=== PATIENT | male | born 1990 | race African-American/Black ===

== ENCOUNTER 2016-07-05 22:03 | Emergency (ER) | payer SELFPAY ==
--- NOTE | 2016-07-05 23:19 | ER Document Report ---
ED Neck/Back Problem - General Chief Complaint: Back Pain Stated Complaint: BACK PAIN Mode of Arrival: Ambulatory Information source: Patient Notes: 26 y/o M presents to ED c/o lower back pain. Patient reports 3 days ago slept on the floor at a friend's house subsequently developed pain to his lower back. Reports pain is to bilateral lower back worse with movement and bending of trunk. Denies recent injury or trauma, fever, extremity weakness/numbness/ tingling, saddle numbness, incontinence, or urinary retention. Reports has had similar episodes in the past once after a fall and another time after lifting a heavy object. TRAVEL OUTSIDE OF THE [place] IN LAST 30 DAYS: No - HPI Patient complains to provider of: Lower back Onset: Last week Onset: Gradual Quality of pain: Achy Severity: Mild Pain Level: 2 Recent injury: No Associated symptoms: Like prior neck/back pain, Lower back pain. denies: Chest pain, Chills, Fever, Incontinence, Numbness/tingling, Radiation to leg, Sensory loss, Unable to urinate Exacerbated by: Movement of trunk Relieved by: Upright position Similar symptoms previously: Yes Recently seen / treated by doctor: No - Related Data Allergies/Adverse Reactions: No Known Allergies Allergy (Verified 07/15/15 09:51) Past Medical History - General Information source: Patient - Social History Smoking Status: Current Every Day Smoker Frequency of alcohol use: None Drug Abuse: None Lives with: Family Family History: Reviewed & Not Pertinent Patient has suicidal ideation: No Patient has homicidal ideation: No - Medical History Medical History: Negative Renal/ Medical History: Denies: Hx Peritoneal Dialysis Past Surgical History: Reports: Hx Oral Surgery - wisdom teeth - Immunizations Immunizations up to date: Yes Hx Diphtheria, Pertussis, Tetanus Vaccination: Yes Review of Systems - Review of Systems Constitutional: No symptoms reported EENT: No symptoms reported Cardiovascular: No symptoms reported Respiratory: No symptoms reported Gastrointestinal: No symptoms reported Genitourinary: No symptoms reported Male Genitourinary: No symptoms reported Musculoskeletal: See HPI Skin: No symptoms reported Hematologic/Lymphatic: No symptoms reported Neurological/Psychological: No symptoms reported -: Yes All other systems reviewed and negative Physical Exam - Vital signs Vitals: Temp Pulse Resp BP Pulse Ox 98.8 F 70 18 117/66 97 07/05/16 22:07 07/05/16 22:07 07/05/16 22:07 07/05/16 22:07 07/05/16 22:07 Interpretation: Normal - General General appearance: Appears well, Alert In distress: None - HEENT Head: Normocephalic, Atraumatic Eyes: Normal Pupils: PERRL - Respiratory Respiratory status: No respiratory distress Chest status: Nontender Breath sounds: Normal Chest palpation: Normal - Cardiovascular Rhythm: Regular Heart sounds: Normal auscultation Murmur: No Pulses: Normal: Radial, Dorsalis pedis Normal capillary refill: Yes - Abdominal Inspection: Normal Distension: No distension Bowel sounds: Normal Tenderness: Nontender Organomegaly: No organomegaly - Back Back: Tender - Mild tenderness with palpation to bilateral paraspinal musculature at upper lumbar level. No midline tenderness, deformity, step-off, or instability. Full range of motion without paresthesias or neurological deficits.. No: Normal, Nontender, Deformity/step-off, CVA tenderness, Vertebra tenderness, Scars, Scoliosis, Wounds, Other - Extremities General upper extremity: Normal inspection, Nontender, Normal color, Normal ROM , Normal strength, Normal temperature. No: Tender, Edema General lower extremity: Normal inspection, Nontender, Normal color, Normal ROM , Normal strength, Normal temperature, Normal weight bearing. No: Tender, Edema - Neurological Neuro grossly intact: Yes Cognition: Normal Orientation: AAOx4 Ruma Coma Scale Eye Opening: Spontaneous Ruma Coma Scale Verbal: Oriented [place] Coma Scale Motor: Obeys Commands [place] Coma Scale Total: 15 Speech: Normal Cerebellar coordination: Normal Motor strength normal: LUE, RUE, LLE, RLE Sensory: Normal Knee - Reflex grade: 2 = Normal - Psychological Associated symptoms: Normal affect, Normal mood - Skin Skin Temperature: Warm Skin Moisture: Dry Skin Color: Normal Course - Re-evaluation Re-evalutation: 07/05/16 23:23 Patient hemodynamically stable, in no distress, afebrile.The patient presents with back pain without signs of spinal cord compression, cauda equina syndrome, infection, aneurysm, or other serious etiology. The patient is neurologically intact, independently and steadily ambulatory without paresthesias or neurological deficits. Given the extremely low risk of these diagnoses further testing and evaluation for these possibilities does not appear to be indicated at this time. Patient appears stable for discharge and agrees with home care, follow-up with PCP, and ED return precautions. - Vital Signs Vital signs: Temp Pulse Resp BP Pulse Ox 98.8 F 70 18 117/66 97 07/05/16 22:07 07/05/16 22:07 07/05/16 22:07 07/05/16 22:07 07/05/16 22:07 Discharge - Discharge Clinical Impression: Back pain Qualifiers: Back pain location: low back pain Chronicity: acute Back pain laterality: bilateral Sciatica presence: without sciatica Qualified Code(s): M54.5 - Low back pain Condition: Stable Disposition: HOME, SELF-CARE Additional Instructions: LOW BACK PAIN: Three out of every four people will have an episode of disabling back pain during their lifetime. Most commonly the pain is due to straining of the muscles and ligaments in the low back. Usual treatment includes: (1) Rest on a firm surface. Avoid lying on your stomach. (2) Ice pack the painful area. After a few days, gentle heat may be used intermittently to relax the area, or ice packs can be continued. (3) Medication may be needed -- muscle relaxers and antiinflammatory medicines are commonly used. (4) As the back improves, exercises are prescribed to strengthen the back and abdominal muscles. Your doctor will advise you on the proper care for your back at each stage in your recovery. You may be better in a few days -- or healing may take several weeks. If new symptoms of a "herniated disc" (radiation of pain, numbness, or tingling down the back of the leg or weakness in the leg) occur, you should be re-examined. Further testing may be necessary. Anti-Inflammatory Medication You have received a prescription for an antiinflammatory agent. This is an excellent, safe drug for pain control. In addition, it has potent antiinflammatory effects which are beneficial, especially in the treatment of injuries, arthritis, or tendonitis. It's best to take this medicine with food. Persons with ulcer disease or allergy to aspirin should notify their physician of this before taking this drug. Take the medication exactly as prescribed. Don't take additional doses unless instructed to do so by your doctor. If you develop wheezing, shortness of breath, hives, faintness, stomach pain, vomiting, or dark black stools, return for re-evaluation at once. MUSCLE RELAXERS: Muscle relaxing medications are usually prescribed for acute muscle spasm or injury to the neck and back. They are often combined with antiinflammatory pain medication for increased relief. You may stop the muscle relaxer when the pain and stiffness have improved. Start the medication again if spasms recur. Muscle relaxers may cause drowsiness, especially with the first dose. Do not operate machinery or drive while under the effects of the medication. Most muscle relaxers last up to 24 hours. Do not combine the medication with alcohol. ICE PACKS: Apply ice packs frequently against the painful area. Many different schedules are recommended, such as "20 minutes on, 20 minutes off" or "one hour ice, two hours rest." If you need to work, you may need to go longer between ice treatments. You should plan to have the area ice packed AT LEAST one fourth of the time. The ice should be applied over the wrap, tape, or splint, or over a layer of cloth -- not directly against the skin. Some ice bags have a built-in cloth and can be put directly on the skin. WARM PACKS: After approximately two days, apply gentle heat (such as a heating pad or hot water bottle) for about 20 to 30 minutes about every two hours -- at least four times daily. Warmth and elevation will help you make a more rapid recovery , and will ease the pain considerably. Do not use HOT heat, and never apply heat for longer than 30 minutes. The continuous heat can invisibly damage skin and muscles -- even when no burn is seen on the surface. Damaged muscles can make you MORE sore. FOLLOW-UP CARE: Follow-up with your primary care provider this week. Return to the emergency department for any worsening symptoms or concerns. Prescriptions: Methocarbamol [Robaxin 500 mg Tablet] 500 mg PO BIDP PRN #8 tablet PRN Reason: Naproxen 500 mg PO BIDP PRN #10 tablet PRN Reason:
[2016-07-06 00:02] VITALS: BP 112/69
== END 2016-07-05 23:33 | disposition home or self-care (01) ==
LOC: ER 22:03
DX: M54.5 Low back pain (principal); X58.XXXA Exposure to other specified factors, initial encounter; F17.200 Nicotine dependence, unspecified, uncomplicated
CPT/HCPCS: 99283

== ENCOUNTER 2016-10-07 03:11 | Emergency (ER) | payer SELFPAY ==
[2016-10-07] MEDS ORDERED: DIPH/PERTUSS(ACELL)/TETANUS VAC/PF 0.5 ML SYR (>=10YO) IM ONE (03:34)
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
--- NOTE | 2016-10-07 03:58 | RADIOLOGY REPORT (SQ) ---
EXAM DESCRIPTION: CT HEAD WITHOUT COMPLETED DATE/TIME: 10/07/2016 3:48 am REASON FOR STUDY: head injury, lac COMPARISON: None. TECHNIQUE: Axial images acquired through the brain without intravenous contrast. Images reviewed wi th bone, brain and subdural windows. Images stored on PACS. All CT scanners at this facility use dose modulation, iterative reconstruction, and/or weight based d osing when appropriate to reduce radiation dose to as low as reasonably achievable (ALARA). [facility]: Dose Right [facility]: CareDose [facility]: Dose Right [facility]: Teradose 4D [facility]: [employer] RADIATION DOSE: Up-to-date CT equipment and radiation dose reduction techniques were employed. CTDIv ol: 64.6 mGy. DLP: 1292 mGy-cm. mGy. LIMITATIONS: None. FINDINGS: VENTRICLES: Normal size and contour. CEREBRUM: No masses. No hemorrhage. No midline shift. Normal lee/white matter differentiation. N o evidence for acute infarction. CEREBELLUM: No masses. No hemorrhage. No alteration of density. No evidence for acute infarction. EXTRAAXIAL SPACES: No fluid collections. No masses. ORBITS AND GLOBE: No intra- or extraconal masses. Normal contour of globe without masses. CALVARIUM: No fracture. PARANASAL SINUSES: No fluid or mucosal thickening. SOFT TISSUES: Mild left anterior parietal swelling. OTHER: No other significant finding. IMPRESSION: No acute intracranial findings. Mild scalp swelling. TECHNICAL DOCUMENTATION: JOB ID: [id number] Quality ID # [id number]: Final reports with documentation of one or more dose reduction techniques (e.g., Au tomated exposure control, adjustment of the mA and/or kV according to patient size, use of iterative reconstruction technique) 2010 [employer]- All Rights Reserved
[2016-10-07] MEDS ORDERED: LIDOCAINE 1% INJ-PF (10 MG/ML) 30 ML SDV INJ ONE (04:10)
[2016-10-07] MEDS ORDERED: OXYCODONE-ACETAMINOPHEN 5-325 MG TABLET PO ONE (04:45)
[2016-10-07 05:24] VITALS: BP 119/54
== END 2016-10-07 05:23 | disposition home or self-care (01) ==
LOC: ER 03:11
PROC: 0HQ1XZZ Repair Face Skin, External Approach (ICD-10-PCS; principal; 2016-10-07)
DX: S01.81XA Laceration without foreign body of other part of head, initial encounter (principal); V18.4XXA Pedal cycle driver injured in noncollision transport accident in traffic accident, initial encounter; Y93.55 Activity, bike riding; F17.210 Nicotine dependence, cigarettes, uncomplicated; Z23 Encounter for immunization
CPT/HCPCS: 99284; 90471; 70450; 90715; 12011; J3490

== ENCOUNTER 2016-10-08 00:49 | Emergency (ER) | payer SELFPAY ==
[2016-10-08] MEDS ORDERED: LIDOCAINE 1%/EPINEPHRINE INJ 20 ML VIAL INJ ONE (01:36)
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
[2016-10-08] MEDS ORDERED: LIDOCAINE 0.5%/EPINEPHRINE INJ 50 ML VIAL INJ ONE (01:38)
[2016-10-08 02:16] VITALS: BP 126/77
== END 2016-10-08 02:15 | disposition home or self-care (01) ==
LOC: ER 00:49
PROC: 0HQ1XZZ Repair Face Skin, External Approach (ICD-10-PCS; principal; 2016-10-08)
DX: T81.33XA Disruption of traumatic injury wound repair, initial encounter (principal); Y83.8 Other surgical procedures as the cause of abnormal reaction of the patient, or of later complication, without mention of misadventure at the time of the procedure; F17.200 Nicotine dependence, unspecified, uncomplicated; S01.511A Laceration without foreign body of lip, initial encounter; X58.XXXA Exposure to other specified factors, initial encounter
CPT/HCPCS: 99282; 12013; J3490

== ENCOUNTER 2016-10-16 09:19 | Emergency (ER) | payer SELFPAY ==
[2016-10-16 09:25] VITALS: BP 134/69
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
== END 2016-10-16 09:50 | disposition home or self-care (01) ==
LOC: ER 09:19
DX: S01.112D Laceration without foreign body of left eyelid and periocular area, subsequent encounter (principal); Y08.89XD Assault by other specified means, subsequent encounter

== ENCOUNTER 2017-01-21 12:11 | Emergency (ER) | payer OTHER ==
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
[2017-01-21 16:05] VITALS: BP 128/71
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
== END 2017-01-21 16:04 | disposition home or self-care (01) ==
LOC: ER 12:11
DX: S50.312A Abrasion of left elbow, initial encounter (principal); S80.212A Abrasion, left knee, initial encounter; S60.512A Abrasion of left hand, initial encounter; V13.4XXA Pedal cycle driver injured in collision with car, pick-up truck or van in traffic accident, initial encounter; Y93.55 Activity, bike riding; M25.562 Pain in left knee; R10.9 Unspecified abdominal pain; M54.2 Cervicalgia; R51 Headache; F17.210 Nicotine dependence, cigarettes, uncomplicated
CPT/HCPCS: 99284; 73562; 70450; 71260; 72125; 74177; L0172

== ENCOUNTER 2017-04-07 23:37 | Emergency (ER) | payer SELFPAY ==
[2017-04-07 23:43] VITALS: BP 141/71
[2017-04-08] MEDS ORDERED: LIDOCAINE 5% (700 MG) TRANSDERMAL ADH..PATCH TP ONE (01:45)
[2017-04-08] MEDS ORDERED: IBUPROFEN 600 MG TABLET PO ONE (01:45)
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
== END 2017-04-08 01:50 | disposition home or self-care (01) ==
LOC: ER 23:37
DX: M54.5 Low back pain (principal); W17.89XA Other fall from one level to another, initial encounter
CPT/HCPCS: 99283

== ENCOUNTER 2017-04-26 15:13 | Emergency (ER) | payer SELFPAY ==
[2017-04-26 15:19] VITALS: BP 122/78
--- NOTE | 2017-04-26 15:52 | ER Document Report ---
ED Hand/Wrist Injury - General Chief Complaint: Laceration Stated Complaint: LEFT ARM INJURY Time Seen by Provider: 04/26/17 15:39 Mode of Arrival: Medic Information source: Patient Notes: 27-year-old male presents to ED for cut on his left hand. He states he flung his hand up and it hit the glass light cover on the ceiling fan causing a laceration to the backside of his left hand. He states he had a tetanus shot last year. Is in no acute distress at this time there is no bleeding he does have a bandage on his hand. TRAVEL OUTSIDE OF THE [place] IN LAST 30 DAYS: No - HPI Injury to: Hand Onset: This afternoon - 1400 Where: Home, Indoors Timing: Still present Quality of pain: Sharp Severity: Moderate Pain Level: 2 - Related Data Allergies/Adverse Reactions: No Known Allergies Allergy (Verified 01/21/17 12:22) Past Medical History - General Information source: Patient - Social History Smoking Status: Former Smoker Cigarette use (# per day): No Chew tobacco use (# tins/day): No Smoking Education Provided: No Frequency of alcohol use: None Drug Abuse: Marijuana Occupation: none Lives with: Friend Family History: Other - Patient does not know his family history he states he is never around many does not remember any Patient has suicidal ideation: No Patient has homicidal ideation: No - Past Medical History Cardiac Medical History: Reports: None Pulmonary Medical History: Reports: Hx Asthma EENT Medical History: Reports: None Neurological Medical History: Reports: None Endocrine Medical History: Reports: None Renal/ Medical History: Reports: None Malignancy Medical History: Reports None GI Medical History: Reports: None Musculoskeltal Medical History: Reports None Skin Medical History: Reports None Psychiatric Medical History: Reports: Hx Bipolar Disorder Traumatic Medical History: Reports: None Infectious Medical History: Reports: None Past Surgical History: Reports: Hx Oral Surgery - wisdom teeth - Immunizations Immunizations up to date: Yes Hx Diphtheria, Pertussis, Tetanus Vaccination: Yes - 2017 Review of Systems - Review of Systems Constitutional: No symptoms reported EENT: No symptoms reported Cardiovascular: No symptoms reported Respiratory: No symptoms reported Gastrointestinal: No symptoms reported Genitourinary: No symptoms reported Male Genitourinary: No symptoms reported Musculoskeletal: No symptoms reported Skin: Other - Laceration left hand Hematologic/Lymphatic: No symptoms reported Neurological/Psychological: No symptoms reported -: Yes All other systems reviewed and negative Physical Exam - Vital signs Vitals: Temp Pulse Resp BP Pulse Ox 98.5 F 57 L 16 122/78 97 04/26/17 15:18 04/26/17 15:18 04/26/17 15:18 04/26/17 15:18 04/26/17 15:18 Interpretation: Normal - General General appearance: Appears well, Alert - HEENT Head: Normocephalic, Atraumatic Eyes: Normal Pupils: PERRL - Respiratory Respiratory status: No respiratory distress Chest status: Nontender Breath sounds: Normal Chest palpation: Normal - Cardiovascular Rhythm: Regular Heart sounds: Normal auscultation Murmur: No - Abdominal Inspection: Normal Distension: No distension Bowel sounds: Normal Tenderness: Nontender Organomegaly: No organomegaly - Back Back: Normal, Nontender - Extremities General upper extremity: Normal color, Normal ROM, Normal temperature General lower extremity: Normal inspection, Nontender, Normal color, Normal ROM , Normal temperature, Normal weight bearing. No: Dave's sign Hand: Tender, Laceration, No evidence of human bite, No evidence of FB - Neurological Neuro grossly intact: Yes Cognition: Normal Orientation: AAOx4 [place] Coma Scale Eye Opening: Spontaneous [place] Coma Scale Verbal: Oriented [place] Coma Scale Motor: Obeys Commands [place] Coma Scale Total: 15 Speech: Normal Motor strength normal: LUE, RUE, LLE, RLE Sensory: Normal - Psychological Associated symptoms: Normal affect, Normal mood - Skin Skin Temperature: Warm Skin Moisture: Dry Skin Color: Normal Course - Re-evaluation Re-evalutation: 04/26/17 17:01 No foreign bodies noted on x-ray patient tolerated sutures well. Will put bacitracin Telfa and dressing on it treat with Keflex and discharged home with a prescription for Keflex. Patient to follow-up with Dr. Serna the hand surgeon and with his family practitioner. - Vital Signs Vital signs: Temp Pulse Resp BP Pulse Ox 98.5 F 57 L 16 122/78 97 04/26/17 15:18 1518 15:18 18 15:18 04/26/17 15:18 04/26/17 15:18 - Diagnostic Test Radiology reviewed: Reports reviewed Procedures - Laceration/Wound Repair Left Dorsal Hand Time completed: 17:00 Wound length (cm): 3.5 Wound's Depth, Shape: Superficial, Irregular Laceration pre-procedure: Sterile PPE donned, Sterile drapes applied, Shur- Clens applied Anesthetic type: 1% Lidocaine Volume Anesthetic (mLs): 5 Wound explored: Clean, No foreign body removed Irrigated w/ Saline (mLs): 400 Wound Repaired With: Sutures Suture Size/Type: 4:0, Ethilon Number of Sutures: 7 Layer Closure?: No Post-procedure wound care: Sterile dressing applied Post-procedure NV exam normal: Yes Complications: No Discharge - Discharge Clinical Impression: Laceration of hand Qualifiers: Encounter type: initial encounter Foreign body presence: without foreign body Laterality: left Qualified Code(s): S61.412A - Laceration without foreign body of left hand, initial encounter Condition: Stable Disposition: HOME, SELF-CARE Instructions: Family Physicians / Practices Additional Instructions: Hand Laceration A laceration on the hand can present special problems. It may be difficult to keep the wound dry. Motion of the fingers can disturb the healing edges. Your work may involve exposure to damaging chemicals or water. Keep the wound clean and dry. If you can't keep the cut dry, undisturbed, and free of chemical exposure, please discuss this with the doctor. If any water or chemical gets onto the dressing, remove it, blot the wound dry, then apply a fresh bandage. Dressings should be changed every day. If you feel the stitches pulling as you move the hand, a splint or other form of protection is needed. If any signs of infection occur (swelling, redness, increasing tenderness, red streaks, tender lumps in the armpit, or fever), see the doctor immediately. SOAP CLEANSING: Gently wash the wound daily using a mild soap (like Ivory, Phisoderm, Neutrogena). Use warm water, rubbing gently until all debris, ooze, and crusting have been washed from the wound. Allow to dry briefly (about 10 minutes) after cleaning. Repeat this cleansing at least three times a day for the first two days and then once or twice a day. ANTIBIOTIC OINTMENT PROTECTION: Your wounds are such that dressing them is not practical or optional. After cleansing, you should apply a thin coating of antibiotic ointment ( Bacitracin, not Neosporin) to the wounds at least three times daily. This lessens infection risk, and may decrease the amount of scarring. Use a q-tip or dull butter knife, not your finger, to apply this ointment. Any debris or ooze which builds up in the ointment should be gently rubbed off with a sterile gauze pad. Harder crusting may need to be gently scrubbed off with a clean wash cloth with soap and warm water, perhaps applying a warm, wet wash cloth to the wound for ten minutes first. Development of redness, severe itching, or blistering may mean allergy to the ointment. See the doctor. PROPHYLACTIC ANTIBIOTIC: The antibiotics which have been prescribed are designed to decrease the risk of infection. Only certain types of wounds benefit from this -- the typical cut, scrape, or burn DOES NOT require antibiotics. Of course, infection can still occur despite the use of prophylactic antibiotics. Your wound will heal with less chance of an infectious complication if you take the medication as directed. The most important dose is the FIRST dose, so don't delay filling the prescription! FOLLOW-UP CARE: Please return in ___2__ days for an infection check and dressing change. Your sutures should be removed in ___9__ days. To facilitate a timely removal of your sutures, you may return to the Emergency Department at [facility]. You do not need to call for an appointment, but the best time to come in for suture removal is early in the morning. If you have been referred to another physician for follow-up care, call that physicians office for an appointment as you were instructed. If you experience a significant change in your laceration, or if you are concerned there may be an infection (swelling, redness, drainage, increasing tenderness, red streaks, tender lumps in the armpit or groin above the laceration, or fever) , return to the Emergency Department immediately re-evaluation. Prescriptions: Cephalexin Monohydrate [Keflex 500 mg Capsule] 500 mg PO Q6H 5 Days capsule Referrals: KENDRICK SERNA DO [ACTIVE STAFF] - Follow up as needed
[2017-04-26] MEDS ORDERED: LIDOCAINE 1% INJ-PF (10 MG/ML) 30 ML SDV INJ ONE (15:58)
--- NOTE | 2017-04-26 16:45 | RADIOLOGY REPORT (SQ) ---
EXAM DESCRIPTION: HAND LEFT 2 VIEWS COMPLETED DATE/TIME: 04/26/2017 4:35 pm REASON FOR STUDY: Cut hand on glass COMPARISON: None. EXAM PARAMETERS: NUMBER OF VIEWS: Three views. TECHNIQUE: AP, lateral and oblique radiographic images acquired of the left hand. LIMITATIONS: None. FINDINGS: MINERALIZATION: Normal. BONES: No acute fracture or dislocation. No worrisome bone lesions. JOINTS: No effusions. SOFT TISSUES: No soft tissue swelling. No foreign body. OTHER: No other significant finding. IMPRESSION: NEGATIVE STUDY OF THE LEFT HAND. NO RADIOGRAPHIC EVIDENCE OF ACUTE INJURY. TECHNICAL DOCUMENTATION: JOB ID: [id number] [employer]- All Rights Reserved
[2017-04-26] MEDS ORDERED: CEPHALEXIN 500 MG CAPSULE PO ONE (16:54)
== END 2017-04-26 17:19 | disposition home or self-care (01) ==
LOC: ER 15:13
DX: S61.412A Laceration without foreign body of left hand, initial encounter (principal); W25.XXXA Contact with sharp glass, initial encounter; Y92.009 Unspecified place in unspecified non-institutional (private) residence as the place of occurrence of the external cause; J45.909 Unspecified asthma, uncomplicated; Z87.891 Personal history of nicotine dependence
CPT/HCPCS: 99283; 73120; 12002; J3490

== ENCOUNTER 2017-05-01 16:06 | Emergency (ER) | payer SELFPAY ==
[2017-05-01 16:19] VITALS: BP 124/72
--- NOTE | 2017-05-01 17:13 | ER Document Report ---
HPI - HPI Patient complains to provider of: Suture removal Onset: Other - Told to come back for suture removal Pain Level: 0 Context: 27-year-old male was dorsal right hand sutures that were placed 5 days ago. He thought he was supposed to come back today for suture removal. Associated Symptoms: None Exacerbated by: Denies Relieved by: Denies - ROS ROS below otherwise negative: Yes Systems Reviewed and Negative: Yes All other systems reviewed and negative Past Medical History - General Information source: Patient - Social History Smoking Status: Unknown if Ever Smoked Frequency of alcohol use: None Drug Abuse: None Lives with: Family Family History: Other - Patient does not know his family history he states he is never around many does not remember any Pulmonary Medical History: Reports: Hx Asthma Renal/ Medical History: Denies: Hx Peritoneal Dialysis Psychiatric Medical History: Reports: Hx Bipolar Disorder Past Surgical History: Reports: Hx Oral Surgery - wisdom teeth - Immunizations Immunizations up to date: Yes Hx Diphtheria, Pertussis, Tetanus Vaccination: Yes - 2017 Vertical Provider Document - CONSTITUTIONAL Agree With Documented VS: Yes Exam Limitations: No Limitations General Appearance: No Apparent Distress - INFECTION CONTROL TRAVEL OUTSIDE OF THE [place] IN LAST 30 DAYS: No - RESPIRATORY O2 Sat by Pulse Oximetry: 98 - MUSCULOSKELETAL/EXTREMETIES Musculoskeletal/Extremeties: MAEW, FROM, Non-Tender - NEURO Level of Consciousness: Awake, Alert - DERM Integumentary: Laceration - Sutured dorsal right hand laceration no inflammation or drainage Course - Vital Signs Vital signs: Temp Pulse Resp BP Pulse Ox 98.3 F 70 12 124/72 98 05/01/17 16:18 05/01/17 16:18 05/01/17 16:18 05/01/17 16:18 05/01/17 16:18 Discharge - Discharge Clinical Impression: wound check Condition: Good Disposition: HOME, SELF-CARE Instructions: Hand Laceration ([facility]) Additional Instructions: return on may 05 for suture removal as originally instructed keep dry to er any concerns
== END 2017-05-01 17:15 | disposition home or self-care (01) ==
LOC: ER 16:06
DX: S61.411D Laceration without foreign body of right hand, subsequent encounter (principal); X58.XXXD Exposure to other specified factors, subsequent encounter
CPT/HCPCS: 99281

== ENCOUNTER 2017-05-03 12:25 | Emergency (ER) | payer SELFPAY | END 2017-05-03 12:50 | disposition left against medical advice (07) | LOC: ER 12:25 | DX: Z53.21 Procedure and treatment not carried out due to patient leaving prior to being seen by health care provider (principal) ==

== ENCOUNTER 2017-09-16 17:11 | Emergency (ER) | payer SELFPAY ==
--- NOTE | 2017-09-16 17:49 | RADIOLOGY REPORT (SQ) ---
EXAM DESCRIPTION: HAND LEFT 3 VIEWS COMPLETED DATE/TIME: 09/16/2017 5:39 pm REASON FOR STUDY: fell c/o of pain in hand and thumb COMPARISON: 04/26/2017 EXAM PARAMETERS: NUMBER OF VIEWS: Three views. TECHNIQUE: AP, lateral and oblique radiographic images acquired of the left hand. LIMITATIONS: None. FINDINGS: MINERALIZATION: Normal. BONES: No acute fracture or dislocation. No worrisome bone lesions. JOINTS: No effusions. SOFT TISSUES: No soft tissue swelling. No foreign body. OTHER: No other significant finding. IMPRESSION: NEGATIVE STUDY OF THE LEFT HAND. NO RADIOGRAPHIC EVIDENCE OF ACUTE INJURY. TECHNICAL DOCUMENTATION: JOB ID: [id number] [email or web address]- All Rights Reserved Reading location - IP/workstation name: [email or web address]
--- NOTE | 2017-09-16 17:57 | ER Document Report ---
ED Hand/Wrist Injury - General Chief Complaint: Thumb Injury Stated Complaint: FINGER INJURY Time Seen by Provider: 09/16/17 17:20 Mode of Arrival: Ambulatory Information source: Patient Notes: 27-year-old female presents to ED for complaining of left thumb pain about 30 minutes before coming to the ED. He states he fell landing on his hand causing pain to his thumb. He states he was outside when he fell. He also has a small scratch to his face that he states is a neighbor's cat scratching. Patient refused Tylenol or Motrin. He was given an ice pack and x-rays ordered. TRAVEL OUTSIDE OF THE [place] IN LAST 30 DAYS: No - HPI Injury to: Hand, Thumb Onset: Just prior to arrival Where: Outdoors, Public place Timing: Still present Quality of pain: Sharp, Throbbing Severity: Moderate Pain Level: 4 Context: Fall - Related Data Allergies/Adverse Reactions: No Known Allergies Allergy (Verified 09/16/17 17:12) Past Medical History - General Information source: Patient - Social History Smoking Status: Former Smoker Cigarette use (# per day): No Chew tobacco use (# tins/day): No Smoking Education Provided: No Frequency of alcohol use: None Drug Abuse: None Lives with: Family Family History: Other - Patient does not know his family history he states he is never around many does not remember any Patient has suicidal ideation: No Patient has homicidal ideation: No - Past Medical History Cardiac Medical History: Reports: None Pulmonary Medical History: Reports: Hx Asthma EENT Medical History: Reports: None Neurological Medical History: Reports: None Endocrine Medical History: Reports: None Renal/ Medical History: Reports: None Malignancy Medical History: Reports None GI Medical History: Reports: None Musculoskeltal Medical History: Reports None Skin Medical History: Reports None Psychiatric Medical History: Reports: Hx Bipolar Disorder Traumatic Medical History: Reports: None Past Surgical History: Reports: Hx Oral Surgery - wisdom teeth - Immunizations Immunizations up to date: Yes Hx Diphtheria, Pertussis, Tetanus Vaccination: Yes - 2017 Review of Systems - Review of Systems Constitutional: No symptoms reported EENT: No symptoms reported Cardiovascular: No symptoms reported Respiratory: No symptoms reported Gastrointestinal: No symptoms reported Genitourinary: No symptoms reported Male Genitourinary: No symptoms reported Musculoskeletal: Other - Left hand and thumb pain and swelling Skin: No symptoms reported Hematologic/Lymphatic: No symptoms reported Neurological/Psychological: No symptoms reported -: Yes All other systems reviewed and negative Physical Exam - Vital signs Vitals: Temp Pulse Resp BP Pulse Ox 99.5 F 73 16 136/84 H 98 09/16/17 17:14 09/16/17 17:14 09/16/17 17:14 09/16/17 17:14 09/16/17 17:14 Interpretation: Normal - General General appearance: Appears well, Alert - HEENT Head: Normocephalic, Atraumatic Eyes: Normal Pupils: PERRL - Respiratory Respiratory status: No respiratory distress Chest status: Nontender Breath sounds: Normal Chest palpation: Normal - Cardiovascular Rhythm: Regular Heart sounds: Normal auscultation Murmur: No - Abdominal Inspection: Normal Distension: No distension Bowel sounds: Normal Tenderness: Nontender Organomegaly: No organomegaly - Back Back: Normal, Nontender - Extremities General upper extremity: Normal color, Normal temperature General lower extremity: Normal inspection, Nontender, Normal color, Normal ROM , Normal temperature, Normal weight bearing. No: Dave's sign Wrist: Normal, Nontender Hand: Tender, No evidence of human bite, No evidence of FB, Swelling. No: Abrasion, Deformity, Dislocation, Ecchymosis, Instability, Nail injury, Tendon deficit - Neurological Neuro grossly intact: Yes Cognition: Normal Orientation: AAOx4 [place] Coma Scale Eye Opening: Spontaneous [place] Coma Scale Verbal: Oriented [place] Coma Scale Motor: Obeys Commands [place] Coma Scale Total: 15 Speech: Normal Motor strength normal: LUE, RUE, LLE, RLE Sensory: Normal - Psychological Associated symptoms: Normal affect, Normal mood - Skin Skin Temperature: Warm Skin Moisture: Dry Skin Color: Normal Course - Re-evaluation Re-evalutation: 09/16/17 18:17 X-ray of left hand is negative according to the radiologist. I do not see any acute injuries. Hand is swollen around the thumb. Patient has snuffbox tenderness and pain with opposition of the thumb. Will place in a thumb spica splint instructed patient on elevation ice ibuprofen and Tylenol and have follow -up with the orthopedic. - Vital Signs Vital signs: Temp Pulse Resp BP Pulse Ox 99.5 F 73 16 131/87 H 98 09/16/17 17:14 09/16/17 17:14 09/16/17 17:14 09/16/17 18:27 06/07/18 17:14 - Diagnostic Test Radiology reviewed: Image reviewed, Reports reviewed Procedures - Immobilization Left Hand Time completed: 18:23 Immobilizer type: Thumb spica Performed by: PCT Post-Proc Neuro Vasc Exam: Normal Alignment checked and good: Yes Discharge - Discharge Clinical Impression: Pain in left hand, Pain of left thumb Fall Qualifiers: Encounter type: initial encounter Qualified Code(s): W19.XXXA - Unspecified fall, initial encounter Condition: Stable Disposition: HOME, SELF-CARE Additional Instructions: You were seen today for pain in your left thumb and hand. You state you fell and it is hard to move your left thumb. X-rays do not show any acute fractures at this time. You will placed in a thumb spica splint to hold this area stable until you can follow-up with orthopedics. SPLINT PRECAUTIONS: A splint has been placed. This will protect the area while healing begins. Your problem does NOT normally require a cast. It MUST, however, be held still! Keep the splint on ALL THE TIME until instructed to remove it by the doctor. As you begin to use the area, be careful. You shouldn't do anything which causes discomfort -- you may disturb the injury even with the splint in place. After the initial period of rest and elevation, if splint does not prevent pain when you move, come back. You may require placement of a different splint , or a cast. If there is unexpected severe pain, or numbness, discoloration, or swelling beyond the splint, you should return at once. If you feel that the splint has broken or become loose, come back. ICE & ELEVATION: Apply ice packs frequently against the painful area. Many different schedules are recommended, such as "20 minutes on, 20 minutes off" or "one hour ice, two hours rest." If you need to work, you may need to go longer between ice treatments. You should plan to have the area ice packed AT LEAST one- fourth of the time. The ice should be applied over the wrap, tape, or splint, or over a layer of cloth -- not directly against the skin. Some ice bags have a built-in cloth and can be put directly on the skin. Your injured part should be elevated as much as possible over the next 48 hours. Try to keep the injury above the level of the heart. Avoid use of the injured area. Elevation and rest will decrease the swelling. USE OF [id number] IBUPROFEN: Ibuprofen (Advil, Nuprin, Medipren, Motrin IB) is a medication for fever and pain control. In addition, it has anti- inflammatory effects which may be beneficial, especially in the treatment of injuries. It's best to take ibuprofen with food. Persons with ulcer disease or allergy to aspirin should notify their physician of this before taking ibuprofen. Ibuprofen can be given every four to six hours, for a total of four doses daily. Age Pain or fever dose Antiinflammatory dose 6-8 yr 200 mg (1 tab) 200 mg (1 tab) 9-11 yr 200 mg (1 tab) 200-400 mg (1-2 tab) 11-14 yr 200-400 mg (1-2 tab) 400 mg (2 tab) 15-adult 400 mg (2 tab) 600 mg (3 tab) FOLLOW-UP CARE: If you have been referred to a physician for follow-up care, call the physician s office for an appointment as you were instructed or within the next two days. If you experience worsening or a significant change in your symptoms, notify the physician immediately or return to the Emergency Department at any time for re-evaluation. Forms: Elevated Blood Pressure Referrals: FERNANDO DONALDSON MD [ACTIVE STAFF] - Follow up as needed
[2017-09-16 18:29] VITALS: BP 131/87
== END 2017-09-16 18:30 | disposition home or self-care (01) ==
LOC: ER 17:11
PROC: 2W3HX1Z Immobilization of Left Thumb using Splint (ICD-10-PCS; principal; 2017-09-16)
DX: S00.81XA Abrasion of other part of head, initial encounter (principal); M79.642 Pain in left hand; M79.645 Pain in left finger(s); W19.XXXA Unspecified fall, initial encounter; W55.03XA Scratched by cat, initial encounter; Z87.891 Personal history of nicotine dependence; J45.909 Unspecified asthma, uncomplicated
CPT/HCPCS: 99283

== ENCOUNTER 2018-05-02 18:46 | Emergency (ER) | payer SELFPAY ==
[2018-05-02 18:53] VITALS: BP 135/78
[2018-05-02] MEDS ORDERED: AZITHROMYCIN 250 MG TABLET PO ONE (19:29)
[2018-05-02] MEDS ORDERED: CEFTRIAXONE INJ 250 MG VIAL IM ONE (19:29)
[2018-05-02] MEDS ORDERED: LIDOCAINE 1% INJ-PF (10 MG/ML) 30 ML SDV INJ ONE (19:30)
[2018-05-02 19:47] LABS: APPEARANCE,URINE CLOUDY; BILIRUBIN,URINE NEGATIVE (NEGATIVE); COLOR,URINE YELLOW; GLUCOSE, URINE NEGATIVE (NEGATIVE); KETONES,URINE NEGATIVE (NEGATIVE); LEUKOCYTE ESTERASE,URINE LARGE (NEGATIVE); NITRITE,URINE NEGATIVE (NEGATIVE); PROTEIN,URINE 30 mg/dL (NEGATIVE)
--- NOTE | 2018-05-02 20:02 | ER Document Report ---
HPI - HPI Time Seen by Provider: 05/02/18 19:29 Pain Level: 3 Notes: Patient is an otherwise healthy 28-year-old male who presents with chief complaint of dysuria and penile drainage over the last 3 days. Patient reports that he has had sex with multiple partners lately. He is unsure if either of them had similar symptoms. Patient denies any history of sexually transmitted diseases. Past Medical History - General Information source: Patient - Social History Smoking Status: Current Some Day Smoker Drug Abuse: None Family History: Other - Patient does not know his family history he states he is never around many does not remember any Pulmonary Medical History: Reports: Hx Asthma Renal/ Medical History: Denies: Hx Peritoneal Dialysis Psychiatric Medical History: Reports: Hx Bipolar Disorder Past Surgical History: Reports: Hx Oral Surgery - wisdom teeth - Immunizations Immunizations up to date: Yes Hx Diphtheria, Pertussis, Tetanus Vaccination: Yes - 2017 Vertical Provider Document - CONSTITUTIONAL Notes: PHYSICAL EXAMINATION: GENERAL: Well-appearing, well-nourished and in no acute distress. HEAD: Atraumatic, normocephalic. EYES: Pupils equal round extraocular movements intact, conjunctiva are normal. ENT: Nares patent NECK: Normal range of motion LUNGS: No respiratory distress Musculoskeletal: Normal range of motion NEUROLOGICAL: Normal speech, normal gait. PSYCH: Normal mood, normal affect. SKIN: Warm, Dry, normal turgor, no rashes or lesions noted. - INFECTION CONTROL TRAVEL OUTSIDE OF THE [place] IN LAST 30 DAYS: No Course - Re-evaluation Re-evalutation: Patient treated prophylactically for chlamydia and gonorrhea. GC chlamydia testing pending in lab. - Vital Signs Vital signs: Temp Pulse Resp BP Pulse Ox 98.4 F 80 14 135/78 H 97 05/02/18 18:52 05/02/18 18:52 05/02/18 18:52 05/02/18 18:52 05/02/18 18:52 - Laboratory Laboratory results interpreted by me: 05/02/18 19:20 Urine Protein 30 H Urine Blood SMALL H Urine Urobilinogen 2.0 H Ur Leukocyte Esterase LARGE H Discharge - Discharge Clinical Impression: Concern about STD in male without diagnosis Condition: Stable Disposition: HOME, SELF-CARE Additional Instructions: We have treated today for chlamydia and gonorrhea. Please make sure the nurse has her correct phone number is someone will call you in the next several days if your results are positive. The urine culture is pending if this is abnormal we will call in an antibiotic for you. Please follow-up with the health department. No sexual intercourse for 7-10 days.
[2018-05-02 21:17] LABS: CHLAM PCR NOT DETECTED (NOT DETECT); GON PCR DETECTED (NOT DETECT)
== END 2018-05-02 20:31 | disposition home or self-care (01) ==
LOC: ER 18:46
DX: R30.0 Dysuria (principal); R36.9 Urethral discharge, unspecified; F17.200 Nicotine dependence, unspecified, uncomplicated
CPT/HCPCS: 99283; 96372; 87086; 81001; 87491; 87591; J3490; J0696

== ENCOUNTER 2018-09-12 01:16 | Emergency (ER) | payer SELFPAY ==
[2018-09-12] MEDS ORDERED: LIDOCAINE 1% INJ-PF (10 MG/ML) 30 ML SDV INJ ONE ×2 (03:55→06:30)
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
[2018-09-12] MEDS ORDERED: CEPHALEXIN 500 MG CAPSULE PO ONE (07:00)
[2018-09-12 09:02] VITALS: BP 142/90
== END 2018-09-12 09:00 | disposition home or self-care (01) ==
LOC: ER 01:16
DX: S02.82XB Fracture of other specified skull and facial bones, left side, initial encounter for open fracture (principal); Y00.XXXA Assault by blunt object, initial encounter; J45.909 Unspecified asthma, uncomplicated; Z91.030 Bee allergy status; F12.10 Cannabis abuse, uncomplicated
CPT/HCPCS: 99283; 70450; 70486; 72125; 12011; 12001; J3490

== ENCOUNTER 2018-09-17 19:43 | Emergency (ER) | payer SELFPAY ==
[2018-09-17] MEDS ORDERED: ACETAMINOPHEN 325 MG TABLET PO ONE (20:26)
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
[2018-09-17] MEDS ORDERED: LIDOCAINE 1%/EPINEPHRINE INJ 20 ML VIAL INJ ONE (21:52)
[2018-09-17] MEDS ORDERED: LIDOCAINE 4% TRANSPARENT DRESSING 5 GM KIT TP ONE (22:39)
--- NOTE | 2018-09-17 23:36 | ER Document Report ---
ED General - General Chief Complaint: Laceration Stated Complaint: HAND INJURY Time Seen by Provider: 09/17/18 20:24 Notes: Patient is a 28-year-old male without chronic medical problems who presents after allegedly falling into glass causing a laceration of his left wrist, right index finger, left ear. The patient is a very evasive historian, when I try to clarify what exactly happened today he continues to state "I just fell". Notes a throbbing, aching constant discomfort to the affected areas. Touching the areas worsens the pain, nothing improves the pain. Regards the pain is being mild in nature. Denies history of similar injuries in the past. States his tetanus is up-to-date. Has not seen his general physician regarding today's concerns. Denies any head or neck trauma today. Denies trauma to any other location. Denies focal weakness, numbness or confusion. TRAVEL OUTSIDE OF THE [place] IN LAST 30 DAYS: No - Related Data Allergies/Adverse Reactions: bee venom protein (honey bee) Allergy (Verified 09/12/18 06:33) Past Medical History - General Information source: Patient - Social History Smoking Status: Never Smoker Frequency of alcohol use: None Drug Abuse: None Family History: Other - Patient does not know his family history he states he is never around many does not remember any Patient has suicidal ideation: No Patient has homicidal ideation: No Pulmonary Medical History: Reports: Hx Asthma Renal/ Medical History: Denies: Hx Peritoneal Dialysis Psychiatric Medical History: Reports: Hx Bipolar Disorder Past Surgical History: Reports: Hx Oral Surgery - wisdom teeth - Immunizations Immunizations up to date: Yes Hx Diphtheria, Pertussis, Tetanus Vaccination: Yes - 2016 Review of Systems - Review of Systems Notes: Constitutional: Negative for fever. Eyes: Negative for visual changes. ENT: Negative for facial injury Cardiovascular: Negative for chest injury. Respiratory: Negative for shortness of breath. Gastrointestinal: Negative for abdominal injury. Genitourinary: Negative for genital injury Musculoskeletal: Positive for right index finger injury and left wrist injury Skin: Positive for laceration/abrasions. Neurological: Negative for head injury. Physical Exam - Vital signs Vitals: Temp Pulse Resp BP Pulse Ox 98.9 F 92 16 138/87 H 100 09/17/18 19:57 09/17/18 19:57 09/17/18 19:57 09/17/18 19:57 09/17/18 19:57 Interpretation: Normal Notes: PHYSICAL EXAMINATION: GENERAL: Well-appearing, well-nourished and in no acute distress. HEAD: Atraumatic, normocephalic. EYES: Pupils equal round and reactive to light, extraocular movements intact, sclera anicteric, conjunctiva are normal. ENT: nares patent, oropharynx clear without exudates. Moist mucous membranes. NECK: Normal range of motion, supple without lymphadenopathy LUNGS: Breath sounds clear to auscultation bilaterally and equal. No wheezes rales or rhonchi. HEART: Regular rate and rhythm without murmurs, capillary refill less than 2 seconds in all digits of the bilateral hands, 2+ radial pulse bilaterally. EXTREMITIES: Full flexion extension of the left wrist including against resistance. NEUROLOGICAL: No focal neurological deficits. Moves all extremities spontaneously and on command. RMU motor and sensory distribution is intact bilaterally including against resistance on motor testing. PSYCH: Normal mood, normal affect. SKIN: Warm, Dry, normal turgor, 6 cm flap type laceration over the volar ulnar aspect of the left wrist, 2 cm laceration over the lower external ear on the left. There is a superficial type laceration over the volar pad of the right index finger. Course - Re-evaluation Re-evalutation: 09/17/18 23:36 Patient presents after reported mechanical fall landing in glass. Sustained a 6 cm laceration over his left volar wrist as well as a 2 cm laceration over the left lower ear. The patient also sustained a laceration to the right index fin kahlil. X-rays of the left wrist and right index finger do not demonstrate any evidence of fractures or evidence of retained foreign bodies. The lacerations on the ear and left wrist were amenable to repair. Patient states his tetanus is already up-to-date within the last 5 years. Denies any head or neck trauma. He has full RMU motor and sensory distribution bilaterally including against resistance. Full flexion extension of the left wrist. Capillary refill less than 2 seconds in all digits of the left hand. At this time will discharge with return precautions and follow-up recommendations. Verbal discharge instructions given a the bedside and opportunity for questions given. Medication warnings reviewed. Patient is in agreement with this plan and has verbalized understanding of return precautions and the need for primary care follow-up in the next 24-72 hours. - Vital Signs Vital signs: Temp Pulse Resp BP Pulse Ox 98.9 F 92 16 138/87 H 100 09/17/18 19:57 09/17/18 19:57 09/17/18 19:57 09/17/18 19:57 09/17/18 19:57 - Diagnostic Test Radiology reviewed: Image reviewed, Reports reviewed Radiology results interpreted by me: 09/17/18 23:35 Left wrist x-ray: No acute fracture or evidence of retained foreign body Right finger x-ray: No evidence of retained foreign body Procedures - Laceration/Wound Repair Left Ear Wound length (cm): 2 Wound's Depth, Shape: Superficial Laceration pre-procedure: Sterile PPE donned Anesthetic type: 1% Lidocaine w/epi Volume Anesthetic (mLs): 1 Wound explored: Clean Irrigated w/ Saline (mLs): 200 Wound Debrided: Minimal Wound Repaired With: Sutures Suture Size/Type: 5:0, Prolene Number of Sutures: 6 Layer Closure?: No Post-procedure wound care: Sterile dressing applied Post-procedure NV exam normal: Yes Complications: No Left Wrist Wound length (cm): 6 Wound's Depth, Shape: Irregular, Flap Laceration pre-procedure: Sterile PPE donned Anesthetic type: 1% Lidocaine w/epi Volume Anesthetic (mLs): 3 Wound explored: Contaminated Irrigated w/ Saline (mLs): 1,000 Wound Debrided: Moderate Wound Repaired With: Sutures Suture Size/Type: 4:0, Prolene Number of Sutures: 10 Layer Closure?: Yes Deep Layer Suture Size/Type: 4:0, Gut Number Deep Layer Sutures: 5 Post-procedure wound care: Sterile dressing applied Post-procedure NV exam normal: Yes Complications: No Discharge - Discharge Clinical Impression: Laceration of left wrist Qualifiers: Encounter type: initial encounter Qualified Code(s): S61.512A - Laceration without foreign body of left wrist, initial encounter Laceration of left ear Qualifiers: Encounter type: initial encounter Qualified Code(s): S01.312A - Laceration without foreign body of left ear, initial encounter Fall Qualifiers: Encounter type: initial encounter Qualified Code(s): W19.XXXA - Unspecified fall, initial encounter Condition: Good Disposition: HOME, SELF-CARE Additional Instructions: Please return to your primary doctor, the ED, or an urgent care in 7 days for suture removal. Return immediately if you develop spreading redness around the wound, pus from the wound, worsening pain, or a fever of >100.4. Keep the area clean and dry. Wash gently with soap and water twice daily and cover with antibiotic ointment.
[2018-09-17 23:53] VITALS: BP 126/78
== END 2018-09-17 23:53 | disposition home or self-care (01) ==
LOC: ER 19:43
DX: S61.512A Laceration without foreign body of left wrist, initial encounter (principal); S01.312A Laceration without foreign body of left ear, initial encounter; W19.XXXA Unspecified fall, initial encounter
CPT/HCPCS: 99283; 73140; 73110; 12011; 12032; J3490 ×2

== ENCOUNTER 2019-05-04 00:11 | Emergency (ER) | payer SELFPAY ==
[2019-05-04] MEDS ORDERED: CEPHALEXIN 500 MG CAPSULE PO ONE (03:11)
[2019-05-04] MEDS ORDERED: ERYTHROMYCIN 0.5% OPH OINTMENT 3.5 GM TUBE OD ONE (03:11)
--- NOTE | 2019-05-04 03:11 | ER Document Report ---
HPI - HPI Time Seen by Provider: 05/04/19 02:50 Pain Level: 1 Context: Patient is a 29-year-old male that comes to the emergency department for chief complaint of a bump on his upper eyelid. He states this was here a week ago but over the past 2 days it has become swollen, red, painful. He denies visual changes or difficulty with seeing, discharge from the eye, pain from the eye, difficulty moving the eye. He denies fever/chills. He denies any daily medications or past medical history. - EENT EENT: REPORTS: Eye problems Past Medical History - General Information source: Patient - Social History Smoking Status: Current Every Day Smoker Frequency of alcohol use: None Drug Abuse: None Lives with: Family Family History: Reviewed & Not Pertinent, Other - Patient does not know his family history he states he is never around many does not remember any Patient has suicidal ideation: No Patient has homicidal ideation: No Pulmonary Medical History: Reports: Hx Asthma Renal/ Medical History: Denies: Hx Peritoneal Dialysis Psychiatric Medical History: Reports: Hx Bipolar Disorder Past Surgical History: Reports: Hx Oral Surgery - wisdom teeth - Immunizations Immunizations up to date: Yes Hx Diphtheria, Pertussis, Tetanus Vaccination: Yes - 2017 [facility] Provider Document - CONSTITUTIONAL General Appearance: WD/WN, No Apparent Distress - INFECTION CONTROL TRAVEL OUTSIDE OF THE [place] IN LAST 30 DAYS: No - HEENT HEENT: Atraumatic, Normocephalic. negative: Normal ENT Exam - Atraumatic, Normocephalic. negative: Normal ENT Exam - Unremarkable nasal, oral pharyngeal exam, ear exams. Normal eyes with normal conjunctivo-, pupils, and EOMs. Right upper eyelid with what appears to be a hordeolum which is mildly tender, surrounding area is mildly erythematous extending to the orbit and over the eyelid. There is no soft tissue swelling. There is no induration or fluctuance. - NECK Neck: Normal Inspection - RESPIRATORY Respiratory: Breath Sounds Normal, No Respiratory Distress - CARDIOVASCULAR Cardiovascular: Regular Rate, Regular Rhythm - GI/ABDOMEN Gastrointestinal: Abdomen Soft, Abdomen Non-Tender - MUSCULOSKELETAL/EXTREMETIES Musculoskeletal/Extremeties: MAEW, FROM, Non-Tender - NEURO Level of Consciousness: Awake, Alert, Appropriate Motor/Sensory: No Motor Deficit, No Sensory Deficit - DERM Integumentary: Warm, Dry, No Rash Course - Re-evaluation Re-evalutation: Evaluation is consistent with a right sided upper eyelid hordeolum. There is some mild erythema surrounding this suggesting some cellulitis but patient has no swelling to the area and he has normal EOMs. No fever. No signs of distress. Patient will be covered with Keflex because of borderline cellulitis along with the treatment of hordeolum using erythromycin and general measures. Discussed follow-up and return precautions. Patient states understanding and agreement. Stable at time of discharge. - Vital Signs Vital signs: Temp Pulse Resp BP Pulse Ox 98.2 F 76 16 152/83 H 97 05/04/19 00:16 05/04/19 00:16 05/04/19 00:16 05/04/19 00:16 05/04/19 00:16 Discharge - Discharge Clinical Impression: Swelling of right eyelid Condition: Stable Disposition: HOME, SELF-CARE Additional Instructions: Your evaluation is consistent with a stye and also some mild surrounding cellulitis (skin infection). Use both the erythromycin ointment topically and take the oral antibiotic as prescribed to completion. I recommend warm compresses over the area as well. Take Tylenol and ibuprofen for pain. Follow-up closely with primary care. Return if you worsen including pain with moving your eye, spreading swelling or redness, fever, loss of vision, or any other concerning or worsening symptoms. Prescriptions: Erythromycin Base [Erythromycin Oph 1 Gm Oint Ud] 1 applic OD ASDIR PRN #1 tube PRN Reason: Cephalexin Monohydrate [Keflex 500 mg Capsule] 500 mg PO QID #28 capsule
[2019-05-04] MEDS ORDERED: ERYTHROMYCIN 0.5% OPH OINT 1 GM UNIT DOSE OD ONE (03:32)
[2019-05-04 03:48] VITALS: BP 141/80
== END 2019-05-04 03:46 | disposition home or self-care (01) ==
LOC: ER 00:11
DX: R22.0 Localized swelling, mass and lump, head (principal); L53.9 Erythematous condition, unspecified; F17.200 Nicotine dependence, unspecified, uncomplicated; J45.909 Unspecified asthma, uncomplicated
CPT/HCPCS: 99283; J3490